=== PATIENT | female | born 1960 | race African-American/Black ===

== ENCOUNTER 2018-03-15 15:13 | Emergency (ER) | payer MEDICARE ==
[~2018-03-15] VITALS: Ht 149.9 cm; Wt 57.2 kg
--- NOTE | 2018-03-15 15:43 | Emergency Room Report ---
History of Present Illness General Chief Complaint: General Complaint Source: Patient Present Illness HPI 57-year-old female feels a swimming sensation in her head, going on for many months, also today developed a balloon-like sensation in her right inframammary area rating to her right shoulder, reports sats improved now as well. She reports no surgeries no hemoptysis no severe cough no sugars breath, no vomiting , diarrhea, numbness, tingling, weakness. Allergies: Coded Allergies: NITROFURANTOIN (Verified Allergy, Severe, Hives, 03/15/18) SULFA (SULFONAMIDE ANTIBIOTICS) (Verified Allergy, Severe, Hives, 03/15/18 ) Patient History Past Medical History: see triage record Last Menstrual Period: na Reviewed Nursing Documentation: PMH: Agreed; PSxH: Agreed Nursing Documentation-PMH Past Medical History: No History, Except For Hx Hypertension: Yes Hx COPD: Yes Physical Exam Vital Signs Date Time Temp Pulse Resp B/P (MAP) Pulse Ox O2 Delivery O2 Flow Rate FiO2 03/15/18 15:23 97.9 78 18 117/79 98 Room Air Medical Decision Making Diagnostic Impression: Primary Impression: Dizziness ER Course Patient very well-appearing, negative Homans sign, no hemoptysis, do not suspect PE, right-sided pulling like sensation in chest is resolved prior to arrival, she does appear anxious, and has had a lot of deaths in her family recently, suspect possible anxiety mediated symptoms, patient refused meclizine , but was not actively vertiginous here, no nystagmus noted, and patient had a normal neurologic examination. Patient refused meclizine, does not wish to stay in the hospital, is not having active dizziness nor active chest pain, suspect possible anxiety versus stress-related symptomatology, will recommend outpatient workup, possibly hypothyroidism or other nonemergent pathology. EKG Diagnostic Results EKG Time: 15:43 EP Interpretation: no stemi Rate: normal Rhythm: NSR ST Segments: no acute changes ASA given to the pt in ED: No Rhythm Strip Diag. Results Rhythm Strip Time: 16:18 EP Interpretation: yes Rate: 76 Rhythm: NSR, no PVC's, no ectopy Chest X-Ray Diagnostic Results Chest X-Ray Diagnostic Results : Chest X-Ray Ordered: Yes # of Views/Limited/Complete: 1 View Indication: Chest Pain EP Interpretation: Yes Interpretation: no consolidation, no effusion, no pneumothorax, no acute cardiopulmonary disease Impression: No acute disease Electronically Signed by: Terence Barrios MD Last Vital Signs Date Time Temp Pulse Resp B/P (MAP) Pulse Ox O2 Delivery O2 Flow Rate FiO2 03/15/18 15:23 97.9 78 18 117/79 98 Room Air TERENCE BARRIOS M.D Mar 15, 2018 15:43
[2018-03-15] MEDS: Meclizine 25mg tab ORAL ONE ×2 (15:48→16:06)
[2018-03-15 16:04] LABS: HEMATOCRIT 38.2 % (37.0-47.0); MEAN CORPUSCULAR VOLUME 88 FL (80-99); PLATELET COUNT 152 K/UL (150-450); RED BLOOD COUNT 4.35 M/UL (4.20-5.40); RED CELL DISTRIBUTION WIDTH 11.1 % (11.6-14.8); WHITE BLOOD COUNT 4.7 K/UL (4.8-10.8)
[2018-03-15 16:14] VITALS: BP 111/75
[2018-03-15 16:24] LABS: ANION GAP 9 mmol/L (5-15); BLOOD UREA NITROGEN 16 mg/dL (7-18); CALCIUM 10.4 MG/DL (8.5-10.1); CARBON DIOXIDE 28 MMOL/L (21-32); CHLORIDE 102 MMOL/L (98-107); POTASSIUM 3.6 MMOL/L (3.5-5.1); SODIUM 139 MMOL/L (136-145)
--- NOTE | 2018-03-15 16:26 | Diagnostic Imaging Report ---
Indication: Dizziness Technique: Continuous helical CT scanning of the head was performed without intravenous contrast material. Axial and coronal 5 mm sections were generated. Radiation dose was minimized using automated exposure control Dose: Total Dose Length Product - DLP 1347.[address] Dose Index - CTDIvol(s) 70.38 mGy. Comparison: none Findings: The ventricular system is normal in size and configuration. There is no shift of midline structures. No abnormal extra-axial fluid collections are noted. There is no evidence of intracerebral bleeding. No other abnormal high or low density areas are noted within the brain. Normal moran-white differentiation. Normal-sized ventricles and extra axial CSF spaces. Visualized orbits and sinuses are unremarkable. Calvarium is intact Impression: Normal CT scan of the head without contrast material. The CT scanner at [facility] is accredited by the [employer] and the scans are performed using protocols designed to limit radiation exposure to as low as reasonably achievable to attain images of sufficient resolution adequate for diagnostic evaluation.
--- NOTE | 2018-03-15 16:32 | Diagnostic Imaging Report ---
Indication: Chest pain Technique: One view of the chest Comparison: none Findings: The heart is enlarged. The lungs and pleural spaces are clear. Impression: Negative
[2018-03-15 16:35] LABS: ALANINE AMINOTRANSFERASE 19 U/L (12-78); ALBUMIN/GLOBULIN RATIO 0.9 (1.0-2.7); ALKALINE PHOSPHATASE 62 U/L (46-116); ASPARTATE AMINO TRANSFERASE 20 U/L (15-37); BILIRUBIN,TOTAL 1.3 MG/DL (0.2-1.0)
[2018-03-15 16:47] LABS: BILIRUBIN,DIRECT 0.3 MG/DL (0.0-0.3)
[2018-03-15 17:50] LABS: APPEARANCE,URINE CLEAR; BILIRUBIN, URINE NEGATIVE (NEGATIVE); COLOR,URINE PALE YELLOW; GLUCOSE, URINE (UA) NEGATIVE (NEGATIVE); KETONES,URINE NEGATIVE (NEGATIVE); LEUKOCYTE ESTERASE ,URINE NEGATIVE (NEGATIVE); NITRITE,URINE NEGATIVE (NEGATIVE); PH,URINE 5 (4.5-8.0); PROTEIN,URINE NEGATIVE (NEGATIVE); UROBILINOGEN,URINE NORMAL MG/DL (0.0-1.0)
[2018-03-15 17:57] VITALS: BP 109/79
--- NOTE | 2018-03-16 16:02 | Cardiology Report ---
APPROVED REPORT EKG Measurement Heart [id number] TN [id number] Normal sinus rhythm Septal infarct, age undetermined Abnormal ECG
== END 2018-03-15 18:30 | disposition home or self-care (01) ==
LOC: EMR 18:17
DX: R42 Dizziness and giddiness (principal); Z88.2 Allergy status to sulfonamides; Z88.8 Allergy status to other drugs, medicaments and biological substances; I10 Essential (primary) hypertension; J44.9 Chronic obstructive pulmonary disease, unspecified
CPT/HCPCS: 36415; 70450; 71045; 80053; 81003; 82248; 83690; 84484; 85007; 85025; 93005; 99283